=== PATIENT | female | born 1945 | race Caucasian/White ===

== ENCOUNTER 2019-12-10 14:44 | Outpatient (CLI) | payer MEDICARE, SELFPAY ==
--- NOTE | ~2019-12-10 | DEXA_ITS ---
Bone Density Report Name: Joanne Monroe Age: 74 Sex: Female Ethnicity: White Date of : 1945 Indication: postmenopausal; height loss; Referring Provider: Jacqueline Lee Study: Bone densitometry was performed. Exam Date: December 10, 2019 Accession number: [id number] Bone Density: Region BMD T-score Z-score Classification AP Spine (L1, L2) 0.991 0.1 2.4 Normal Femoral Neck (Left) 0.763 -0.8 1.3 Normal Total Hip (Left) 0.882 -0.5 1.3 Normal Total Hip Bilateral Avg 0.874 -0.6 1.3 Normal Femoral Neck (Right) 0.703 -1.3 0.8 Osteopenia Total Hip (Right) 0.864 -0.6 1.2 Normal World Health Organization criteria for BMD impression classify patients as: Normal (T-score at or above -1.0), Osteopenia (T-score between -1.0 and -2.5), or Osteoporosis (T-score at or below -2.5). 10-year Fracture Risk(1): Major Osteoporotic Fracture 10% Hip Fracture 1.8% Reported Risk Factors: [place] (), Neck BMD=0.703, BMI=32.4 (1) FRAX(R) Version 3.08. Fracture probability calculated for an untreated patient. Fracture probability may be lower if the patient has received treatment. Previous Exams: Region Exam Age BMD T-score BMD Change BMD Change Date g/cm2 vs Baseline vs Previous AP Spine(L1, L2) 12/10/2019 74 0.991 0.1 -0.057(-5.4%)# -0.075(-7.1%)* 05/13/2015 69 1.067 0.8 0.018(1.7%)# 0.052(5.1%)# 10/18/2012 67 1.015 0.3 -0.034(-3.2%)# -0.034(-3.2%)# 04/10/2009 63 1.049 0.6 Total Hip(Left) 12/10/2019 74 0.882 -0.5 -0.050(-5.3%)# -0.007(-0.8%) 05/13/2015 69 0.889 -0.4 -0.043(-4.6%)# -0.075(-7.8%)# 10/18/2012 67 0.964 0.2 0.032(3.5%)# 0.032(3.5%)# 04/10/2009 63 0.932 -0.1 Total Hip(Right) 12/10/2019 74 0.864 -0.6 0.007(0.8%)# 0.014(1.7%) 05/13/2015 69 0.850 -0.8 -0.007(-0.8%)# -0.026(-3.0%)# 10/18/2012 67 0.876 -0.5 0.019(2.2%)# 0.019(2.2%)# 04/10/2009 63 0.857 -0.7 *Denotes significance at 95% confidence level, LSC for AP Spine = 0.022 g/cm2, LSC for Total Hip = 0.027 g/cm2 Clinical Information Provided by Patient: Has used the following medications: Vitamin D Patient maximum height was 65 Menopause Age: 52 No regular weight bearing exercise Drinks caffeinated beverages Onset of menses at age 13 Number of children 2 Impression: The patient has low bone mass, based on the Right Femoral Neck T-score. The patient has an estimated ten-year risk
--- NOTE | ~2019-12-10 | MM_ITS ---
EXAMINATION: MM screening ethan BI w rigo HISTORY: Screening mammogram TECHNIQUE: Craniocaudal and mediolateral oblique 3-D tomosynthesis images were obtained and synthetic 2-D images were generated. CAD analysis was submitted and interpreted. COMPARISON: 10/11/2018 diagnostic bilateral digital mammogram and complete bilateral breast ultrasound 09/27/2018 bilateral digital screening mammogram 05/15/2017 bilateral diagnostic digital mammogram and complete left breast ultrasound BREAST PARENCHYMAL COMPOSITION: There are scattered areas of fibroglandular density. FINDINGS: There are scattered bilateral benign calcifications. There are scattered bilateral subcenti meter circumscribed opacities. There is no evidence of interval suspicious mass, calcification, or ar chitectural distortion to suggest malignancy in either breast. There has been no suspicious interval change. IMPRESSION: 1. No mammographic evidence of malignancy. 2. Recommend routine screening mammography in one year. BI-RADS Category 2: Benign finding(s). Reviewed, dictated and finalized at location A.
== END 2019-12-10 14:45 | disposition home or self-care (01) ==
PROVIDERS: PCP Family Medicine; Visit Provider Family Medicine
DX: Z12.31 Encounter for screening mammogram for malignant neoplasm of breast (principal); Z78.0 Asymptomatic menopausal state; M85.851 Other specified disorders of bone density and structure, right thigh
CPT/HCPCS: 77063; 77067; 77080

== ENCOUNTER → 2019-12-23 13:41 | Outpatient (CLI) | payer MEDICARE, SELFPAY ==
--- NOTE | ~2019-12-23 | CT_ITS ---
EXAMINATION: CT brain wo/w con DATE: 12/23/2019 14:38 INDICATION: Communicating hydrocephalus. TECHNIQUE: Computed tomography (CT) of the head was performed without and with 100 mL Omnipaque 350 i ntravenous contrast. The mA was adjusted according to patient size. Iterative reconstruction techniqu e was employed. The dose-length product was 1199.14 mGy-cm. COMPARISON: None FINDINGS: There are scattered areas of low attenuation in the cerebral white matter. There is no intr acranial hemorrhage, acute infarction, or abnormal intracranial mass lesion. The ventricles are marva l in size. There is a right temporal occipital approach ventriculostomy catheter that courses through the right lateral ventricle with tip in the right frontal lobe. The paranasal sinuses are clear. The re are likely changes of ocular lens replacement surgeries. There is a small right mastoid effusion, likely chronic. IMPRESSION: 1. Normal ventricles. Right temporal occipital ventriculostomy catheter that courses through right la teral ventricle with tip in right frontal lobe. 2. Mild nonspecific cerebral white matter disease, which likely represents chronic small vessel ische lidya disease. Reviewed, dictated and finalized at location A. IMPRESSION: 1. Normal ventricles. Right temporal occipital ventriculostomy catheter that co urses through right lateral ventricle with tip in right frontal lobe. 2. 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
[2019-12-23 14:24] LABS: Estimated Glomerular Filt Rate > 60
== END ==
PROVIDERS: PCP Family Medicine; Visit Provider Family Medicine
DX: G91.0 Communicating hydrocephalus (principal); R93.0 Abnormal findings on diagnostic imaging of skull and head, not elsewhere classified
CPT/HCPCS: 70470; Q9967

== ENCOUNTER 2020-09-24 15:33 | Emergency (ER) | payer MEDICARE, SELFPAY ==
--- NOTE | ~2020-09-24 | XR_ITS ---
XR chest 1V portable DATE: 09/24/2020 18:05 INDICATION: Cerebrovascular accident. Headache. TECHNIQUE: Portable upright AP view on 10/21/2020 at 1856 hours COMPARISON: None FINDINGS: Normal heart size. Mild aortic unfolding. No hilar or mediastinal enlargement. No pulmonary infiltrate or consolidation, pleural effusion or pulmonary vascular congestion or pneumothorax. IMPRESSION: No active cardiopulmonary disease Reviewed, dictated and finalized at location A.
--- NOTE | ~2020-09-24 | CT_ITS ---
EXAMINATION: CTA brain carotid EXAM DATE: 09/24/2020 19:00 INDICATION: Stroke. Headache. Communicating hydrocephalus. TECHNIQUE: Noncontrast head CT. Spiral CTA of the carotid arteries was performed with intravenous i njection 100 cc of Omnipaque 350. Axial, coronal, sagittal reformatted images reviewed. Additional r eformatted images created on dedicated 3-D workstation. NASCET comparable standard used to assess th e degree of arterial stenosis. Spiral CT angiogram cerebral arteries performed with the same intrave nous injection of contrast. Source images of the brain CTA transferred to dedicated workstation for 3 -D rotational image creation. Coronal, sagittal maximum intensity pixel images also reviewed. The d ose-length product (DLP) for this examination was 1836.79 mGy-cm. The exposure was tailored accordi ng to patient size, and iterative reconstruction (ASIR) was used as additional dose reduction techniq ue. Comparison is made to prior examination from 12/23/2019. FINDINGS: There is no carotid plaque, 0% carotid stenosis bilaterally. The vertebral arteries are cod ominant. Mild carotid siphon arterial sclerosis without stenosis. There is no carotid or vertebral b asilar arterial dissection or fibromuscular dysplasia. There are no cerebral artery aneurysms. There is symmetric cerebral artery arborization. The sagittal, transverse and sigmoid sinuses enhance marva lly, no venous sinus thrombosis. Internal cerebral veins also enhance normally. Again there is right-sided ventricular shunt entering the parietal bone, coursing along the body of t he right lateral ventricle, with tip in the frontal lobe white matter. Ventricle size is stable, with in expected limits.There is no acute intraparenchymal hemorrhage. There is mild microangiopathy and c erebral atrophy. No evidence of intraparenchymal brain mass lesion. No evidence of acute infarction. Bilateral cataract surgery. There is no mass effect or midline shift. There are no extra-axial jaswant ections. Trace right mastoid effusion. IMPRESSION: 1. No acute carotid or intracranial findings. 2. Bilateral carotid bulb 0% stenosis. Reviewed, dictated and finalized at location B.
[2020-09-24 15:34] VITALS: BP 151/79; PULSE 95; RESP 16; TEMP 37; O2SAT 100
--- NOTE | 2020-09-24 17:04 | ECG_ITS ---
Measurements Intervals [place] Rate: 84 P: 5 [place]: 181 QRS: -32 QRSD: 74 T: -13 QT: 332 QTc: 395 Interpretive Statements SINUS RHYTHM POOR R WAVE PROGRESSION, ANTERIOR LEADS CONSIDER INFERIOR INFARCT, AGE INDETERMINATE BASELINE ARTIFACT- I, II, III, AVR, AVF, V1, V3-V6 ABNORMAL ECG Electronically Signed On 09-24-2020 21:25:47 CDT by Umesh Galarza D.O.
[2020-09-24 17:34] VITALS: BP 142/76; PULSE 85; RESP 22; O2SAT 98
--- NOTE | 2020-09-24 17:39 | ED.GENADULT ---
HPI - General Adult General Chief complaint: Headache Stated complaint: UNSTEADY GAIT,ROOT RESOLVED Time Seen by Provider: 09/24/20 16:13 Source: patient and RN notes reviewed Mode of arrival: ambulatory Limitations: no limitations History of Present Illness HPI narrative: Patient is a 75-year-old female who presents to emergency department for evaluation of having an episode of confusion when she called primary care son called and requested that she come to the ER she lives at independent living she had been complaining of a posterior headache today. Patient did not take anything for her headache and presents to emergency department noting no pain. Patient denies injury or trauma recent illness. Patient notes she did not take her metoprolol yesterday. Patient takes very few medications has history of NEWS LIBRARY DIRECTOR shunt with no complications and has had this shunt long-term on arrival patient resting comfortably in the room with no other complaints Related Data Home Medications Medication Instructions Recorded Confirmed lactobacillus rhamnosus R0011 20 cell PO 04/22/19 08/07/20 billion cell capsule omeprazole 20 mg tablet,delayed 20 mg PO DAILY 04/22/19 08/07/20 release peg 400-propylene glycol (PF) 0.4 1 drop EACH EYE DAILY PRN 04/22/19 08/07/20 %-0.3 % eye drops in a dropperette cholecalciferol (vitamin D3) 25 25 mcg PO DAILY 02/10/20 08/07/20 mcg (1,000 unit) capsule mecobalamin (vitamin B12) 1,000 1,000 mcg PO DAILY 02/10/20 08/07/20 mcg chewable tablet Allergies Allergy/AdvReac Type Severity Reaction Status Date / Time fesoterodine [From Toviaz] Allergy Mild loopy and Verified 09/24/20 15:39 unsteady ciprofloxacin Allergy Unknown Unknown Verified 09/24/20 15:39 house dust Allergy Unknown seansonal Verified 09/24/20 15:39 meloxicam Allergy Unknown Unknown Verified 09/24/20 15:39 mold Allergy Unknown seasonal Verified 09/24/20 15:39 Penicillins Allergy Unknown Rash Verified 09/24/20 15:39 donepezil [From Namzaric] Allergy confusion Verified 09/24/20 15:39 memantine [From Namzaric] Allergy confusion Verified 09/24/20 15:39 Review of Systems Review of Systems: All systems reviewed & are unremarkable except as noted in HPI and below PMFSH Past Medical History Medical History Arthritis of knee Hyperlipidemia type III Hypothyroidism, acquired, autoimmune SUNDEEP (obstructive sleep apnea) Primary osteoarthritis of right knee Vitamin D deficiency, unspecified Surgical History Surgical History NEWS LIBRARY DIRECTOR (ventriculoperitoneal) shunt status Family History Family History Father Patient's father is Malignant neoplasm of prostate Sibling Patient's sister is Grandparent Family history of arthritis Other Cerebrovascular accident Diabetes mellitus Family history of malignant neoplasm Family history of malignant neoplasm of breast Hypertension Social History Social History Social History: Smoking status: Never smoker Second hand tobacco smoke exposure: No Alcohol intake: current Substance use: never Substance use type: does not use Gender identity (if verbalized by the patient): Female Exam Narrative: Exam Narrative: GENERAL: Well-appearing, well-nourished, and in no acute distress. HEAD: Normocephalic, atraumatic. EYES: PERRLA and EOMI. ENT: Nares clear, no rhinorrhea or epistaxis. Mucous membranes moist. NECK: Supple. No adenopathy or masses. CHEST: Clear to auscultation. No respiratory distress. No wheezes rales or rhonchi HEART: Regular rate and rhythm. No murmur heard. Normal peripheral pulses. ABDOMEN: Soft, nontender, nondistended EXTREMITIES: Normal range of motion. No edema. SKIN: Warm, dry, no rash. NEURO: No focal
[2020-09-24 17:46] LABS: Glucose Point of Care 107 mg/dl (65-105)
[2020-09-24 17:51] LABS: Basophils Percent Auto 0.4 % (0.2-1.2); Eosinophils Percent Auto 0.5 % (0-4.4); Hematocrit 41.2 % (37.0-47.0); Hemoglobin 13.1 g/dL (12.0-15.0); Immature Granulocyte Absolute 0.02 K/mm3 (0.00-0.031); Immature Granulocyte Percent A 0.3 % (0-0.5); Lymphocytes Absolute Auto 1.35 K/mm3 (0.9-3.2); Lymphocytes Percent Auto 17.7 % (18.3-44.2); Mean Corpuscular HGB Conc 31.8 g/dl (32-36); Mean Corpuscular Hemoglobin 28.9 pg (26-34); Mean Corpuscular Volume 90.9 fl (80-100); Mean Platelet Volume 10.8 fl (7.4-10.4); Monocytes Absolute Auto 0.5 K/mm3 (0.1-0.6); Neutrophils Absolute Auto 5.7 K/mm3 (1.3-6.7); Neutrophils Percent Auto 75.1 % (45.5-73.1); Platelet Count Result 231 k/mm3 (150-375); Red Blood Count 4.53 M/mm3 (4.2-5.4); Red Cell Distribution Width 13.4 % (11.5-14.5); White Blood Count 7.6 K/mm3 (4.5-10.0)
--- NOTE | 2020-09-24 17:52 | PC.NURSE ---
Patient ambulatory from room 17 to room 22 without difficulty and in no distress.
[2020-09-24 17:53] LABS: Add Urine Microscopic? NO; Appearance Urine Clear (Clear); Bilirubin Urine Negative (Negative); Blood Urine Negative (Negative); Color Urine Straw (Yellow); Glucose Urine UA Negative (Negative); Ketones Urine Negative (Negative); Leukocyte Esterase Ur Negative LEU/UL (Negative); Nitrate Urine Negative (Negative); Protein Urine Negative (Negative); Specific Grav Ur 1.013 (1.001-1.035); Urobilinogen Urine Negative mg/dL (<2.0)
[2020-09-24 18:00] LABS: Anion Gap 11 mmol/L (8-16); Blood Urea Nitrogen 21 mg/dL (7-17); Calcium 9.8 mg/dL (8.4-10.2); Carbon Dioxide 24 mmol/L (22-30); Chloride 107 mmol/L (98-107); Estimated CRCL calculation 52 ml/min; Estimated Glomerular Filt Rate > 60; Glucose 104 mg/dL (65-105); Potassium 4.4 mmol/L (3.4-5.0); Sodium 142 mmol/L (137-145)
[2020-09-24 18:02] LABS: Partial Thromboplastin Time 34.4 SECONDS (22.3-36.8)
[2020-09-24 18:07] LABS: Prothrombin Time 13.8 Seconds (11.1-14.7)
== END 2020-09-24 21:25 | disposition home or self-care (01) ==
PROVIDERS: Emergency Medicine Emergency Medical Services; Emergency Provider Emergency Medicine; PCP Family Medicine
DX: R51.9 Headache, unspecified (principal); E78.5 Hyperlipidemia, unspecified; E06.3 Autoimmune thyroiditis; G47.33 Obstructive sleep apnea (adult) (pediatric); E55.9 Vitamin D deficiency, unspecified; M17.11 Unilateral primary osteoarthritis, right knee; Z98.2 Presence of cerebrospinal fluid drainage device; R94.31 Abnormal electrocardiogram [ECG] [EKG]
CPT/HCPCS: 36415; 70496; 70498; 71045; 80048; 81003; 81025; 82948; 85025; 85610; 85730; 93005; 99284; Q9967

== ENCOUNTER 2021-05-20 10:54 | Outpatient (CLI) | payer MEDICARE, SELFPAY ==
[2021-05-20 11:44] LABS: Basophils Absolute Auto 0.1 K/mm3 (0.0-0.1); Basophils Percent Auto 0.6 % (0.2-1.2); Eosinophils Absolute Auto 0.1 K/mm3 (0-0.3); Eosinophils Percent Auto 0.7 % (0-4.4); Hematocrit 40.5 % (37.0-47.0); Immature Granulocyte Absolute 0.03 K/mm3 (0.00-0.031); Immature Granulocyte Percent A 0.3 % (0-0.5); Lymphocytes Absolute Auto 1.96 K/mm3 (0.9-3.2); Lymphocytes Percent Auto 22.8 % (18.3-44.2); Mean Corpuscular HGB Conc 32.1 g/dl (32-36); Mean Corpuscular Volume 93.3 fl (80-100); Mean Platelet Volume 11.5 fl (7.4-10.4); Monocytes Absolute Auto 0.6 K/mm3 (0.1-0.6); Monocytes Percent Auto 7.2 % (2.6-8.5); Neutrophils Absolute Auto 5.9 K/mm3 (1.3-6.7); Neutrophils Percent Auto 68.4 % (45.5-73.1); Platelet Count Result 247 k/mm3 (150-375); Red Blood Count 4.34 M/mm3 (4.2-5.4); Red Cell Distribution Width 13.8 % (11.5-14.5); White Blood Count 8.6 K/mm3 (4.5-10.0)
[2021-05-20 11:52] LABS: Add Urine Microscopic? YES; Appearance Urine Cloudy (Clear); Bacteria Urine Trace /hpf; Bilirubin Urine Negative (Negative); Color Urine Yellow (Yellow); Glucose Urine UA Negative (Negative); Ketones Urine Negative (Negative); Leukocyte Esterase Ur 3+ LEU/UL (Negative); Mucus Urine Rare /lpf; Nitrate Urine Negative (Negative); Protein Urine Negative (Negative); Specific Grav Ur 1.019 (1.001-1.035); Squamous Epithelial Cell Urine Many /hpf (Few); Urobilinogen Urine Negative mg/dL (<2.0); WBC Urine >75 /hpf
[2021-05-20 11:55] LABS: Alanine Aminotransferase 15 U/L (4-35); Albumin Level 4.4 g/dL (3.5-5.1); Alkaline Phosphatase 109 U/L (38-126); Anion Gap 10 mmol/L (8-16); Aspartate Amino Transferase 20 U/L (14-36); Bilirubin,Total 0.7 mg/dL (0.2-1.3); Blood Urea Nitrogen 17 mg/dL (7-17); Calcium 9.6 mg/dL (8.4-10.2); Carbon Dioxide 26 mmol/L (22-30); Chloride 104 mmol/L (98-107); Estimated Glomerular Filt Rate > 60; Glucose 94 mg/dL (65-110); Potassium 4.5 mmol/L (3.4-5.0); Sodium 140 mmol/L (137-145)
[2021-05-20 12:03] LABS: Blood Urine Negative (Negative)
[2021-05-20 12:27] LABS: Total Triiodothyronine (T3) 1.09 NG/ML (0.97-1.69)
[2021-05-20 13:15] LABS: Free T4 Free Thyroxine 1.06 ng/mL (0.78-2.19)
== END 2021-05-20 10:55 | disposition home or self-care (01) ==
LOC: ANHLAB 10:56
PROVIDERS: PCP Family Medicine; Visit Provider Family Medicine
DX: R41.0 Disorientation, unspecified (principal); I10 Essential (primary) hypertension; E03.9 Hypothyroidism, unspecified
CPT/HCPCS: 36415; 80053; 81001; 84439; 84443; 84480; 85025; 87077; 87086; 87186

== ENCOUNTER 2021-09-24 07:47 | Emergency (ER) | payer MEDICARE, SELFPAY ==
[2021-09-24] VITALS (9 sets, daily range): BP systolic 126–133; BP diastolic 61–66; PULSE 76–87; RESP 15–20; TEMP 36.2; O2SAT 97–100
--- NOTE | ~2021-09-24 | CT_ITS ---
EXAMINATION: CT brain wo con, CT facial bones wo con DATE: 09/24/2021 08:13 INDICATION: Head and facial injury post fall with laceration on the chin, pinpoint pupils and unable to communicate. TECHNIQUE: 1. Computed tomography (CT) of the head was performed without intravenous contrast. Sagittal and kisha nal reconstructions were obtained. The dose-length product was 605.33 mGy-cm. 2. CT of the facial bones and maxillofacial region was performed without intravenous contrast. Sagitt al and coronal reconstructions were obtained. The dose-length product was 265.00 mGy-cm. COMPARISON: 12/23/2019 FINDINGS: Head CT: Unchanged ventriculoperitoneal shunt with which enters through a right parietal jt hole and extends from the occipital horn to the anterior horn of the right lateral ventricle with distal tip in the p eriventricular right frontal lobe. No calvarial fracture. No acute intracranial hemorrhage, acute inf arction or abnormal extra axial fluid collection. There is mild scattered white matter hypoattenuatio n consistent with chronic small vessel ischemic disease. Ventricles are normal and symmetric. No mas s/mass effect. Maxillofacial CT: Age-indeterminate small minimally displaced fracture at the tip of the nasal process of the maxilla. No other maxillofacial fractures. Specifically the nasal bones, child of the orbits and paranasal sin uses, zygomatic arches, pterygoid plates and mandible are all intact. There is a skin laceration at t he lower lip with soft tissue swelling and small amount of soft tissue gas. Nasal septum is midline. Mild mucosal thickening the right maxillary sinus. Chronic small right mastoid effusion. Left mastoid air cells and bilateral middle ear cavities are clear. Changes of bilateral intraocular lens replace ment. Orbits are otherwise normal. Temporomandibular joints are normal alignment with mild osteoarthr itis on the left. Moderate upper cervical spondylosis. IMPRESSION: 1. Minimally displaced age-indeterminate fracture at the tip of the nasal process of the maxilla. No other fractures identified. 2. No calvarial fracture or acute intracranial process. 3. Unchanged ventriculoperitoneal shunt which courses from posterior to anterior across the right lat eral ventricle with tip in the anterior right frontal periventricular white matter. Ventricles are un changed. 4. Mild scattered white matter hypoattenuation consistent with chronic small vessel ischemic disease. Reviewed, dictated and finalized at location B. IMPRESSION: 1. Minimally displaced age-indeterminate fracture at the tip of the nasal proce ss of the maxilla. No other fractures identified. 2. No calvarial fracture or acute intracranial process. 3. Unchanged ventriculoperitoneal shunt which courses from posterior to anterio r across the right lateral ventricle with tip in the anterior right frontal per iventricular white matter. Ventricles are unchanged. 4. Mild scattered white matter hypoattenuation consistent with chronic small ve ssel ischemic disease.
--- NOTE | ~2021-09-24 | XR_ITS ---
EXAMINATION: XR hand RT min 3V DATE: 09/24/2021 08:18 INDICATION: Right hand and index finger injury TECHNIQUE: Posteroanterior, oblique and lateral views of the right hand were obtained. COMPARISON: None. FINDINGS: Soft tissue swelling at the right index finger with surrounding bandaging material. Suggestion of a p ossible skin laceration at the distal phalanx. Bone alignment is normal. No fracture. Polyarticular o steoarthritis, moderate at the first carpometacarpal joint and mild at the majority the remaining carlos nts in the right hand. No radiopaque foreign bodies. IMPRESSION: 1. No acute osseous abnormality. Reviewed, dictated and finalized at location B.
--- NOTE | 2021-09-24 07:58 | ECG_ITS ---
Measurements Intervals [place] Rate: 80 P: 9 [place]: 168 QRS: -21 QRSD: 94 T: 27 QT: 366 QTc: 422 Interpretive Statements SINUS RHYTHM CANNOT RULE OUT INFERIOR INFARCTION AGE INDETERMINATE BASELINE ARTIFACT ABNORMAL ECG COMPARED TO ECG 09/24/2020 17:33:36 NO SIGNIFICANT CHANGES Electronically Signed On 09-24-2021 16:57:33 CDT by Diomedes Spring M.D.
--- NOTE | 2021-09-24 07:58 | ED.FALL ---
HPI - Fall General Chief Complaint: Fall Stated Complaint: POSSIBLE STROKE (LKW-12 HOURS AGO) GLF WITH LACS History of Present Illness HPI Narrative: 76-year-old female presenting to the emergency department for evaluation after having a ground-level fall this morning at her assisted living. Patient states she was attempting to walk towards the bathroom when she had a ground-level fall causing her to strike her face. Patient is unsure if she had any loss of consciousness. Patient's only complaint at this time is facial and right hand pain. Related Data Home Medications Medication Instructions Recorded Confirmed omeprazole 20 mg tablet,delayed 20 mg PO DAILY 04/22/19 08/04/21 release peg 400-propylene glycol (PF) 0.4 1 drop ophthalmic (eye) DAILY PRN 04/22/19 08/04/21 %-0.3 % eye drops in a dropperette (Systane (PF)) cholecalciferol (vitamin D3) 25 25 mcg PO DAILY 02/10/20 08/04/21 mcg (1,000 unit) capsule Allergies Allergy/AdvReac Type Severity Reaction Status Date / Time fesoterodine [From Toviaz] Allergy Mild loopy and Verified 09/24/21 08:19 unsteady ciprofloxacin Allergy Unknown Unknown Verified 09/24/21 08:19 house dust Allergy Unknown seansonal Verified 09/24/21 08:19 meloxicam Allergy Unknown Unknown Verified 09/24/21 08:19 mold Allergy Unknown seasonal Verified 09/24/21 08:19 Penicillins Allergy Unknown Rash Verified 09/24/21 08:19 donepezil [From Namzaric] Allergy confusion Verified 09/24/21 08:19 memantine [From Namzaric] Allergy confusion Verified 09/24/21 08:19 Review of Systems Review of Systems: CONSTITUTIONAL: Denies fever, chills, or sweats. EYES: Denies visual changes, redness, or discharge. ENT: Denies rhinorrhea, congestion, sore throat, or otalgia. CARDIOVASCULAR: Denies chest pain, palpitations, or edema. RESPIRATORY: Denies cough or dyspnea. GASTROINTESTINAL: Denies abdominal pain, nausea, vomiting, or diarrhea. GENITOURINARY: Denies dysuria or hematuria. SKIN: Laceration to chin, laceration to right index finger MUSCULOSKELETAL: Denies back pain, joint pain, or myalgia. NEUROLOGIC: Denies headache, numbness, or weakness. [facility] Past Medical History Medical History Arthritis of knee Hyperlipidemia type III Hypothyroidism, acquired, autoimmune SUNDEEP (obstructive sleep apnea) Primary osteoarthritis of right knee Vitamin D deficiency, unspecified Surgical History Surgical History DIRECTOR CLINICAL RESEARCH (ventriculoperitoneal) shunt status Family History Family History Father Patient's father is Malignant neoplasm of prostate Sibling Patient's sister is Grandparent Family history of arthritis Other Cerebrovascular accident Diabetes mellitus Family history of malignant neoplasm Family history of malignant neoplasm of breast Hypertension Social History Social History (Updated 07/30/21 @ 11:16 by Lucero Juarez) Social History: Smoking status: Never smoker Second hand tobacco smoke exposure: No Alcohol intake: current Alcohol use details: Occasionally Substance use: never Substance use type: does not use Gender identity (if verbalized by the patient): Female Sexual Orientation (if Verbalized by the Patient): Straight or Heterosexual Exam Narrative: APPEARANCE: Well appearing, no pain, no distress, well-nourished. HEAD: normocephalic, laceration to inferior chin EYES: PERRLA/EOMI, conjunctivae clear. NOSE: Normal no drainage NECK: Supple. No adenopathy, no masses. RESPIRATORY: Airway patent, respirations nonlabored. Clear to auscultation bilaterally, no rales, rhonchi, wheezing. CARDIOVASCULAR: Regular rate and rhythm without murmurs rubs or gallops. ABDOMINAL: Soft, nontender, nondistended, normal bowel sounds MUSCULOSKELETAL: Moves all extremities. Strength/ROM inta
[2021-09-24 07:59] LABS: Glucose Point of Care 115 mg/dl (65-105)
[2021-09-24 08:10] LABS: Basophils Percent Auto 0.6 % (0.2-1.2); Eosinophils Percent Auto 0.6 % (0-4.4); Hematocrit 40.1 % (37.0-47.0); Immature Granulocyte Absolute 0.01 K/mm3 (0.00-0.031); Immature Granulocyte Percent A 0.1 % (0-0.5); Lymphocytes Absolute Auto 1.35 K/mm3 (0.9-3.2); Lymphocytes Percent Auto 20.1 % (18.3-44.2); Mean Corpuscular HGB Conc 32.4 g/dl (32-36); Mean Corpuscular Hemoglobin 29.5 pg (26-34); Mean Corpuscular Volume 91.1 fl (80-100); Mean Platelet Volume 10.5 fl (7.4-10.4); Monocytes Absolute Auto 0.5 K/mm3 (0.1-0.6); Monocytes Percent Auto 6.9 % (2.6-8.5); Neutrophils Absolute Auto 4.8 K/mm3 (1.3-6.7); Neutrophils Percent Auto 71.7 % (45.5-73.1); Platelet Count Result 228 k/mm3 (150-375); Red Cell Distribution Width 13.2 % (11.5-14.5); White Blood Count 6.7 K/mm3 (4.5-10.0)
[2021-09-24 08:23] LABS: Alanine Aminotransferase 15 U/L (6-35); Albumin Level 3.7 g/dL (3.5-5.1); Alkaline Phosphatase 105 U/L (38-126); Anion Gap 3 mmol/L (8-16); Aspartate Amino Transferase 22 U/L (14-36); Bilirubin,Total 0.8 mg/dL (0.2-1.3); Blood Urea Nitrogen 21 mg/dL (7-17); Calcium 8.9 mg/dL (8.4-10.2); Carbon Dioxide 29 mmol/L (22-30); Chloride 107 mmol/L (98-107); Estimated CRCL calculation 47 ml/min; Estimated Glomerular Filt Rate > 60; Glucose 112 mg/dL (65-110); Sodium 139 mmol/L (137-145)
[2021-09-24 08:23] LABS: INR 1.1; Partial Thromboplastin Time 33.6 SECONDS (22.3-36.8); Prothrombin Time 13.8 Seconds (11.1-14.7)
[2021-09-24 08:59] LABS: Appearance Urine Clear (Clear); Bilirubin Urine Negative (Negative); Blood Urine Negative (Negative); Color Urine Yellow (Yellow); Glucose Urine UA Negative (Negative); Ketones Urine Negative (Negative); Leukocyte Esterase Ur Negative LEU/UL (Negative); Nitrate Urine Negative (Negative); Protein Urine Negative (Negative); Urobilinogen Urine 0.2 mg/dL (<2.0); pH Urine 6.5 (5.0-9.0)
[2021-09-24 09:06] LABS: Add Urine Microscopic? NO
--- NOTE | 2021-09-24 10:40 | PC.NURSE ---
PT INCONTINENT OF BOWEL AND BLADDER. CLEANED UP BY NINI ARCEO. DR GORDON MADE AWARE
[2021-09-24] MEDS: TETANUS,DIPHTHERIA,AC PERTUSSIS ADULT (0.5 ML) BOOSTRIX IM (12:01)
--- NOTE | 2021-09-24 12:06 | PC.NURSE ---
Desktop Technician attempted to contact both contacts for to obtain patient transport back to her facility.
== END 2021-09-24 12:18 | disposition home or self-care (01) ==
PROVIDERS: Emergency Provider Emergency Medicine; PCP Family Medicine
DX: S02.2XXA Fracture of nasal bones, initial encounter for closed fracture (principal); S61.210A Laceration without foreign body of right index finger without damage to nail, initial encounter; S01.81XA Laceration without foreign body of other part of head, initial encounter; E78.5 Hyperlipidemia, unspecified; E03.9 Hypothyroidism, unspecified; Z79.899 Other long term (current) drug therapy; Z23 Encounter for immunization; W18.30XA Fall on same level, unspecified, initial encounter; Y92.099 Unspecified place in other non-institutional residence as the place of occurrence of the external cause
CPT/HCPCS: 12001; 12011; 12013; 36415; 51701; 70450; 70486; 73130; 80053; 81003; 82948; 85025; 85610; 85730; 90471; 90715; 93005; 99284

== ENCOUNTER 2021-11-23 07:51 | Emergency (ER) | payer MEDICARE, SELFPAY ==
[2021-11-23 07:50] VITALS: BP 130/59; PULSE 70; RESP 16; TEMP 36.6; O2SAT 94
--- NOTE | 2021-11-23 08:08 | ED.FALL ---
HPI - Fall General Chief Complaint: Fall Stated Complaint: FALL Time Seen by Provider: 11/23/21 07:57 Source: patient, family and RN notes reviewed Mode of arrival: EMS Limitations: no limitations History of Present Illness HPI Narrative: 76 years old white female, came from custodial by ambulance because of skin tear at the right forearm. Patient was sitting on the toilet, slid off it and injured right forearm. She denies any other injuries. Last tetanus shot at the beginning of this month. Patient's son requested to check urine because had urine infection 1 week ago. Related Data Home Medications Medication Instructions Recorded Confirmed omeprazole 20 mg tablet,delayed 20 mg PO DAILY 04/22/19 10/17/21 release peg 400-propylene glycol (PF) 0.4 1 drop ophthalmic (eye) DAILY PRN 04/22/19 10/17/21 %-0.3 % eye drops in a dropperette (Systane (PF)) cholecalciferol (vitamin D3) 25 25 mcg PO DAILY 02/10/20 10/17/21 mcg (1,000 unit) capsule Allergies Allergy/AdvReac Type Severity Reaction Status Date / Time fesoterodine [From Toviaz] Allergy Mild loopy and Verified 10/01/21 11:11 unsteady ciprofloxacin Allergy Unknown Unknown Verified 10/01/21 11:11 house dust Allergy Unknown seansonal Verified 10/01/21 11:11 meloxicam Allergy Unknown Unknown Verified 10/01/21 11:11 mold Allergy Unknown seasonal Verified 10/01/21 11:11 Penicillins Allergy Unknown Rash Verified 10/01/21 11:11 donepezil [From Namzaric] Allergy confusion Verified 10/01/21 11:11 memantine [From Namzaric] Allergy confusion Verified 10/01/21 11:11 Review of Systems Review of Systems: All systems reviewed & are unremarkable except as noted in HPI and below PMFSH Past Medical History Medical History Arthritis of knee Hyperlipidemia type III Hypothyroidism, acquired, autoimmune SUNDEEP (obstructive sleep apnea) Primary osteoarthritis of right knee Vitamin D deficiency, unspecified Surgical History Surgical History HOSPITAL[employer]ITLES (ventriculoperitoneal) shunt status Family History Family History Father Patient's father is Malignant neoplasm of prostate Sibling Patient's sister is Grandparent Family history of arthritis Other Cerebrovascular accident Diabetes mellitus Family history of malignant neoplasm Family history of malignant neoplasm of breast Hypertension Social History Social History Social History: Smoking status: Never smoker Second hand tobacco smoke exposure: No Alcohol intake: current Alcohol use details: Occasionally Substance use: never Substance use type: does not use Gender identity (if verbalized by the patient): Female Sexual Orientation (if Verbalized by the Patient): Straight or Heterosexual Exam Narrative: General appearance: Well-developed, well-nourished Skin: Right forearm skin tear Head: Normocephalic, nontraumatic Eyes: Clear conjunctiva Neck: Supple, nontender Chest and respiratory: Airway patent, no respiratory distress, no accessory muscle use Heart: Regular rate/rhythm Abdomen: Soft, nontender, no organomegaly, quiet bowel sounds Vascular: Normal peripheral pulses, normal capillary refill. Musculoskeletal: Normal range of motion, nontender back Neurologic: Alert and oriented ?3, COTTON SAMPLER is normal as tested, no gross motor deficit Course Vital Signs Vital signs: Vital Signs Temperature 36.6 C 11/23/21 07:50 Pulse Rate 70 11/23/21 07:50 Respirator
[2021-11-23 08:42] LABS: Appearance Urine Clear (Clear); Bilirubin Urine Negative (Negative); Blood Urine Negative (Negative); Color Urine Yellow (Yellow); Glucose Urine UA Negative (Negative); Ketones Urine Negative (Negative); Leukocyte Esterase Ur 2+ LEU/UL (Negative); Nitrate Urine Negative (Negative); Protein Urine Negative (Negative); Specific Grav Ur 1.015 (1.001-1.035); Urobilinogen Urine 0.2 mg/dL (<2.0)
[2021-11-23 08:49] LABS: Mucus Urine Rare /lpf; Squamous Epithelial Cell Urine Many /hpf (Few); WBC Urine 16-20 /hpf
[2021-11-23 08:50] LABS: Add Urine Microscopic? YES
== END 2021-11-23 09:04 ==
PROVIDERS: Emergency Provider Emergency Medicine
DX: S51.811A Laceration without foreign body of right forearm, initial encounter (principal); E78.49 Other hyperlipidemia; E06.3 Autoimmune thyroiditis; E55.9 Vitamin D deficiency, unspecified; G47.33 Obstructive sleep apnea (adult) (pediatric); M17.11 Unilateral primary osteoarthritis, right knee; Z98.2 Presence of cerebrospinal fluid drainage device; W18.11XA Fall from or off toilet without subsequent striking against object, initial encounter; R82.998 Other abnormal findings in urine
CPT/HCPCS: 81001; 87086; 87088; 99283

== ENCOUNTER 2022-10-15 17:14 | Emergency (ER) | payer MEDICARE, SELFPAY ==
[2022-10-15] VITALS (17 sets, daily range): BP systolic 117–149; BP diastolic 57–79; PULSE 87; RESP 18; TEMP 36.9; O2SAT 96–100
--- NOTE | ~2022-10-15 | CT_ITS ---
Non-contrast Head CT History: Status post fall COMPARISON: 09/24/2021 Technique: Axial non-contrast imaging of the brain was performed. Dose reduction technique was used on this scan by utilizing automated exposure control and iterative reconstruction technique. The dose -length product (DLP) was 605.33 mGy-cm. Findings: There is no evidence of intracranial hemorrhage, mass lesion, or acute infarct. Brain par enchyma appears normal. The ventricles and subarachnoid spaces are stable, with ventriculostomy shun t catheter in place. The calvarium appears normal. The visualized paranasal sinuses and mastoid air cells are clear. Impression: No acute abnormality seen. Stable ventriculostomy shunt catheter with stable mild prominence of the ventricular system. Reviewed, dictated and finalized at [facility]. Impression: No acute abnormality seen. Stable ventriculostomy shunt catheter with stable mild prominence of the ventri cular system.
--- NOTE | ~2022-10-15 | XR_ITS ---
Right elbow Technique: AP, oblique, and lateral views were obtained. Clinical History: Pain Findings: No acute fracture or dislocation is seen. Osseous alignment is anatomic. Joint spaces are p reserved. There is no displacement of the fat pads, and soft tissues are unremarkable. Impression: Unremarkable radiographs. Reviewed, dictated and finalized at location . Impression: Unremarkable radiographs.
--- NOTE | ~2022-10-15 | XR_ITS ---
Left Hand Technique: PA, oblique, and lateral views were obtained. Clinical History: Status post fall Findings: No acute fracture or dislocation is seen. Osseous alignment is anatomic. There is mild dege nerative change of the first CMC joint. Soft tissues are unremarkable. Impression: No fracture or dislocation. Mild degenerative change at the first CMC joint. Reviewed, dictated and finalized at location . Impression: No fracture or dislocation. Mild degenerative change at the first CMC joint.
--- NOTE | ~2022-10-15 | CT_ITS ---
CT Facial Bones and Cervical Spine Clinical Indication: Trauma Technique: Contiguous axial scans were obtained through the facial bones and cervical spine followed by coronal and sagittal reconstructions. Dose reduction technique was used on this scan by utilizing automated exposure control and iterative reconstruction technique. The dose-length product (DLP) was 325.44 mGy-cm. Findings: CT facial bones: No fractures are identified. The visualized paranasal sinuses are clear. Intraorbita l soft tissues appear normal. There is probable laceration in the left supraorbital scalp. CT cervical spine: No fractures or subluxation. There is advanced degenerative disc narrowing at C6- C7, with associated uncovertebral degenerative change at this level. There is right facet arthropathy with right neural foraminal narrowing at C3-C4. There is prominent left facet arthropathy at C4-C5 w ith probable mild neural foraminal narrowing. No prevertebral soft tissue swelling. Impression: No fracture is seen in the facial bones. Laceration in the left supraorbital scalp. No fracture or subluxation of the cervical spine. Degenerative changes, as above. Reviewed, dictated and finalized at location . Impression: No fracture is seen in the facial bones. Laceration in the left supraorbital scalp. No fracture or subluxation of the cervical spine. Degenerative changes, as above.
--- NOTE | ~2022-10-15 | XR_ITS ---
Portable chest x-ray Comparison: 09/24/2020 Clinical History: Status post fall Findings: Lungs are clear, without focal consolidation or pleural effusion. Cardiomediastinal silho uette is stable. Bones and soft tissues are unremarkable. Impression: Normal chest. Reviewed, dictated and finalized at location . Impression: Normal chest.
--- NOTE | ~2022-10-15 | XR_ITS ---
AP view of the pelvis Clinical history: Pain Findings: No acute fracture or dislocation is seen. Osseous alignment is anatomic. Bilateral hip and SI joint spaces are preserved. Soft tissues are unremarkable. Impression: No significant abnormality is seen. Reviewed, dictated and finalized at location . Impression: No significant abnormality is seen.
--- NOTE | 2022-10-15 17:27 | ECG_ITS ---
Measurements Intervals [place] Rate: 77 P: 24 [place]: 181 QRS: -27 QRSD: 74 T: 6 QT: 359 QTc: 406 Interpretive Statements BASELINE ARTIFACT/POOR ECG QUALITY SINUS RHYTHM BORDERLINE LEFT AXIS DEVIATION [QRS AXIS < -20] BORDERLINE ECG COMPARED TO ECG 09/24/2021 07:57:35 CURRENT tRACING HAS SIGNIFICANT BASELINE ARTIFACT Electronically Signed On 10-16-2022 8:27:53 CDT by Bora Prakash M.D.
--- NOTE | 2022-10-15 17:34 | ED.GENADULT ---
HPI - General Adult General Chief complaint: Fall Stated complaint: fall/syncopy Time Seen by Provider: 10/15/22 17:19 History of Present Illness HPI narrative: This is a 77-year-old dementia patient presenting after an unwitnessed fall. The patient does not recall the events leading up to the fall. She was found on the floor for an unknown period of time. EMS was called and she was brought to hospital. This time she has complained of pain to her left eyebrow left hand right elbow. She appears to be at her baseline mental status per her son which is A&O times 1-2. She has fluctuating mental status at baseline. Related Data Home Medications Medication Instructions Recorded Confirmed azelastine 137 mcg (0.1 %) nasal 1 spray intranasal Q12H 04/01/22 04/01/22 spray aerosol fluticasone propionate 50 1 spray intranasal BID 04/01/22 04/01/22 mcg/actuation nasal spray,suspension (Allergy Relief (fluticasone)) levothyroxine 25 mcg capsule 25 mcg PO DAILY 04/01/22 04/01/22 multivit with 1 tablet PO DAILY 04/01/22 04/01/22 [id number]-[id number]-lutein 8 mg iron-400 mcg-300 mcg tablet ([facility]) acetaminophen 325 mg capsule 325 mg PO Q6H PRN 08/09/22 (Tylenol) Allergies Allergy/AdvReac Type Severity Reaction Status Date / Time fesoterodine [From Toviaz] Allergy Mild loopy and Verified 08/09/22 11:58 unsteady ciprofloxacin Allergy Unknown Unknown Verified 08/09/22 11:58 house dust Allergy Unknown seansonal Verified 08/09/22 11:58 meloxicam Allergy Unknown Unknown Verified 08/09/22 11:58 mold Allergy Unknown seasonal Verified 08/09/22 11:58 Penicillins Allergy Unknown Rash Verified 08/09/22 11:58 donepezil [From Namzaric] Allergy confusion Verified 08/09/22 11:58 memantine [From Namzaric] Allergy confusion Verified 08/09/22 11:58 [facility] Past Medical History Medical History Arthritis of knee Hyperlipidemia type III Hypothyroidism, acquired, autoimmune SUNDEEP (obstructive sleep apnea) Primary osteoarthritis of right knee Vitamin D deficiency, unspecified Surgical History Surgical History H/O brain surgery (~1978) 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 status Family History Family History Father Patient's father is Malignant neoplasm of prostate Sibling Patient's sister is Grandparent Family history of arthritis Other Cerebrovascular accident Diabetes mellitus Family history of malignant neoplasm Family history of malignant neoplasm of breast Hypertension Social History Social History Social History: Smoking status: Never smoker Second hand tobacco smoke exposure: No Alcohol intake: former Alcohol use details: Occasionally Substance use: never Substance use type: does not use Lack of Transportation: No Lack of Food: Never True Current Housing: I Have Housing Concerned About Future Housing: No Difficulty Paying Gas/Electric Bills: No Difficulty Paying for Meds: No Currently Unemployed: No Education: High School Diploma/GED Difficulty w/ Childcare or Family Care: No Living arrangements: assisted living Occupation/Education: retired Gender identity (if verbalized by the patient): Female Sexual Orientation (if Verbalized by the Patient): Straight or Heterosexual Exam Narrative: APPEARANCE: No apparent distress. A&O times 1-2 Head: atraumatic. EYES: EOMI, pupils 2 mm equal reactive NOSE: Atraumatic NECK: Trachea midline RESPIRATORY: No increased rate of breathing, clear to auscultation CARDIOVASCULAR: RRR, ABDOMINAL: Non-distended MUSCULOSKELETAl: head to toe trauma exam revealed the eyebrow injury, pain on movement of the right elbow and bruising and swelling to the left mayers
[2022-10-15 18:19] LABS: Basophils Absolute Auto 0.1 K/mm3 (0.0-0.1); Basophils Percent Auto 0.6 % (0.2-1.2); Eosinophils Absolute Auto 0.1 K/mm3 (0-0.3); Eosinophils Percent Auto 0.6 % (0-4.4); Hematocrit 29.3 % (37.0-47.0); Hemoglobin 9.2 g/dL (12.0-15.0); Immature Granulocyte Absolute 0.03 K/mm3 (0.00-0.031); Immature Granulocyte Percent A 0.4 % (0-0.5); Lymphocytes Absolute Auto 1.07 K/mm3 (0.9-3.2); Lymphocytes Percent Auto 12.8 % (18.3-44.2); Mean Corpuscular HGB Conc 31.4 g/dl (32-36); Mean Corpuscular Hemoglobin 29.3 pg (26-34); Mean Corpuscular Volume 93.3 fl (80-100); Mean Platelet Volume 11.4 fl (7.4-10.4); Monocytes Absolute Auto 0.6 K/mm3 (0.1-0.6); Monocytes Percent Auto 7.6 % (2.6-8.5); Neutrophils Absolute Auto 6.5 K/mm3 (1.3-6.7); Platelet Count Result 206 k/mm3 (150-375); Red Blood Count 3.14 M/mm3 (4.2-5.4); Red Cell Distribution Width 14.9 % (11.5-14.5); White Blood Count 8.4 K/mm3 (4.5-10.0)
[2022-10-15] MEDS: LIDO 1%/EPINEPHRINE 1:100,000 20 ML VIAL 10 ML INFILTRATE (18:24)
[2022-10-15] MEDS: SODIUM CHLORIDE 0.9% IV 1,000 ML 999 ML IV CONT (18:25)
[2022-10-15] MEDS: TETANUS,DIPHTHERIA,AC PERTUSSIS ADULT (0.5 ML) BOOSTRIX IM (18:26)
[2022-10-15 18:29] LABS: Partial Thromboplastin Time 34.3 SECONDS (22.3-36.8); Prothrombin Time 13.4 Seconds (11.1-14.7)
[2022-10-15 18:48] LABS: Alanine Aminotransferase 30 U/L (6-35); Alkaline Phosphatase 148 U/L (38-126); Anion Gap 5 mmol/L (8-16); Aspartate Amino Transferase 29 U/L (14-36); Bilirubin,Total 0.5 mg/dL (0.2-1.3); Blood Urea Nitrogen 28 mg/dL (7-17); Carbon Dioxide 28 mmol/L (22-30); Chloride 105 mmol/L (98-107); Creatine Kinase 38 U/L (30-135); Estimated CRCL calculation 63 ml/min; Estimated Glomerular Filt Rate > 60; Glucose 104 mg/dL (65-110); Lipase 114 U/L (23-300); Magnesium 2.2 mg/dL (1.6-2.3); Phosphorus 2.4 mg/dL (2.5-4.5); Potassium 4.5 mmol/L (3.4-5.0); Sodium 138 mmol/L (137-145)
[2022-10-15 18:57] LABS: NT Pro B Type Natriuretic Pept 431 pg/mL (19.9-100)
[2022-10-15 18:59] LABS: Troponin I < 0.012 ng/mL (0.000-0.034)
[2022-10-15 19:05] LABS: Appearance Urine Turbid (Clear); Bacteria Urine 4+ /hpf; Bilirubin Urine Negative (Negative); Blood Urine 1+ (Negative); Color Urine Yellow (Yellow); Glucose Urine UA Negative (Negative); Hyaline Casts Urine Present /lpf; Ketones Urine Negative (Negative); Leukocyte Esterase Ur 3+ LEU/UL (Negative); Nitrate Urine Positive (Negative); Non Pathogenic Casts 0-2; Protein Urine Negative (Negative); RBC Urine 51-100 /hpf (0-2); Specific Grav Ur 1.013 (1.001-1.035); Squamous Epithelial Cell Urine None seen /hpf (Few); WBC Urine 51-100 /hpf
[2022-10-15 19:07] LABS: Add Urine Microscopic? YES
[2022-10-15 19:14] LABS: Influenza A QL RT-PCR Negative (Negative); Influenza B QL RT-PCR Negative (Negative); RSV RNA, RT-PCR Negative (Negative); SARS-CoV-2 RNA PCR Negative (Negative)
--- NOTE | 2022-10-21 18:01 | PC.NURSE ---
Late entry note: 2030 ceftriaxone stopped.
== END 2022-10-15 20:37 ==
PROVIDERS: Emergency Provider Emergency Medicine; PCP Family Medicine
DX: S01.112A Laceration without foreign body of left eyelid and periocular area, initial encounter (principal); S60.222A Contusion of left hand, initial encounter; Z23 Encounter for immunization; Z20.822 Contact with and (suspected) exposure to COVID-19; F03.90 Unspecified dementia, unspecified severity, without behavioral disturbance, psychotic disturbance, mood disturbance, and anxiety; E03.9 Hypothyroidism, unspecified; E55.9 Vitamin D deficiency, unspecified; G47.33 Obstructive sleep apnea (adult) (pediatric); M17.11 Unilateral primary osteoarthritis, right knee; Z98.2 Presence of cerebrospinal fluid drainage device; R82.998 Other abnormal findings in urine; R94.31 Abnormal electrocardiogram [ECG] [EKG]; W19.XXXA Unspecified fall, initial encounter
CPT/HCPCS: 12013; 36415; 70450; 70486; 71045; 72125; 72170; 73080; 73130; 80053; 81001; 82550; 83605; 83690; 83735; 83880; 84100; 84484; 85025; 85610; 85730; 87077; 87086; 87186; 87637; 90471; 90715; 93005; 96361; 96365; 99284; J0696; J7030

== ENCOUNTER 2023-02-02 10:42 | Emergency (ER) | payer MEDICARE, SELFPAY ==
[2023-02-02] VITALS (19 sets, daily range): BP systolic 125–136; BP diastolic 48–70; PULSE 80; RESP 18–20; TEMP 36.6–36.7; O2SAT 92–100
--- NOTE | ~2023-02-02 | CT_ITS ---
EXAMINATION: CT cervical spine wo con DATE: 02/02/2023 11:41 INDICATION: Head injury. TECHNIQUE: Computed tomography (CT) of the cervical spine was performed without intravenous contrast. Automated exposure control and iterative reconstruction technique were employed. The dose-length pro duct was 331.67 mGy-cm. COMPARISON: CT cervical spine 10/15/2022 FINDINGS: There is a ventriculostomy catheter in the right lateral ventricle. There is 17 degrees dex troscoliosis of cervicothoracic spine. Vertebral body heights are normal. There is moderately decreas ed disc height at C3-C4, severely decreased disc height at C4-C5, mildly decreased disc height at C5- C6, and severely decreased disc height at C6-C7. The following disc levels are specifically discussed : C2-C3: There is mild bilateral uncovertebral joint osteoarthritis. There is mild right and severe lef t facet joint osteoarthritis. There is mild left neural foraminal stenosis. There is no central canal stenosis. C3-C4: There is severe bilateral uncovertebral joint osteoarthritis. There is severe bilateral facet joint osteoarthritis. There is moderate right and mild left neural foraminal stenosis. There is mild central canal stenosis. C4-C5: There is mild bilateral uncovertebral joint osteoarthritis. There is moderate and severe left facet joint osteoarthritis. There is mild left neural foraminal stenosis. There is mild central canal stenosis. C5-C6: There is mild bilateral uncovertebral joint osteoarthritis. There is severe left facet joint o steoarthritis. There is mild left neural foraminal stenosis. There is no central canal stenosis. C6-C7: There is severe right and moderate left uncovertebral joint osteoarthritis. There is mild righ t and severe left facet joint osteoarthritis. There is mild right neural foraminal stenosis. There is mild central canal stenosis. C7-T1: There is no uncovertebral joint osteoarthritis. There is mild bilateral facet joint osteoarthr itis. There is no neural foraminal stenosis. There is no central canal stenosis. IMPRESSION: 1. No fracture. 2. Severe cervical spondylosis. 3. Cervicothoracic dextroscoliosis. Reviewed, dictated and finalized at location A.
--- NOTE | ~2023-02-02 | XR_ITS ---
EXAMINATION: XR chest 1V portable DATE: 02/02/2023 13:08 INDICATION: Fall. TECHNIQUE: A single frontal view of the chest was obtained. COMPARISON: Chest single view 10/15/2022 FINDINGS: There is no pneumonia, pleural effusion, or pneumothorax. The heart size is normal. A right -sided ventriculoperitoneal shunt is noted. IMPRESSION: 1. No acute cardiopulmonary disease. Reviewed, dictated and finalized at location A.
--- NOTE | ~2023-02-02 | CT_ITS ---
EXAMINATION: CT brain wo con INDICATION: Head injury COMPARISON: 10/15/2022 TECHNIQUE: Standard unenhanced head CT. The dose-length product (DLP) was 681.00 mGy-cm. The mA was a djusted according to patient size. Iterative reconstruction technique was employed. FINDINGS: No acute intraparenchymal hemorrhage. No evidence of mass lesion. No evidence of acute infa rction. There is a large right parietal scalp hematoma. Again noted is a right temporooccipital appro ach ventriculostomy coursing through the right lateral ventricle and ending with its tip in the right frontal lobe. There is mild periventricular and subcortical hypodensity probably related to small ve ssel ischemic disease. There is mild prominence of the sulci and ventricles related to cerebral atrop hy. Intracranial calcified cerebral atherosclerosis is noted. No extra-axial collections. No mass eff ect or midline shift. Changes in the globes are likely from ocular lens surgery. There is mild mucosa l thickening of the paranasal sinuses. A chronic right mastoid effusion is noted. IMPRESSION: 1. Right parietal scalp hematoma without acute intracranial abnormality. 2. Age related findings. Reviewed, dictated and finalized at location L.
--- NOTE | ~2023-02-02 | XR_ITS ---
EXAMINATION: XR pelvis 1-2V DATE: 02/02/2023 11:57 INDICATION: Pelvic pain. Fall. TECHNIQUE: An anteroposterior view of the pelvis was obtained. COMPARISON: Pelvis radiograph 10/15/2022 FINDINGS: There is lumbar levoscoliosis and severe spondylosis. No fracture. There is mild osteoarthr itis of the hips. IMPRESSION: 1. Mild osteoarthritis of the hips. Reviewed, dictated and finalized at location A.
--- NOTE | ~2023-02-02 | XR_ITS ---
EXAMINATION: XR elbow LT 2V DATE: 02/02/2023 13:08 INDICATION: Left elbow injury. Fall. TECHNIQUE: 2 views of left elbow were obtained. COMPARISON: None. FINDINGS: Bone alignment is normal. No fracture. Joint spaces are normal. No elbow joint effusion. IMPRESSION: 1. Normal left elbow. Reviewed, dictated and finalized at location A. IMPRESSION: 1. Normal left elbow.
--- NOTE | 2023-02-02 13:20 | ED.FALL ---
HPI - Fall General Chief Complaint: Fall Stated Complaint: fall Time Seen by Provider: 02/02/23 11:55 History of Present Illness HPI Narrative: Patient is a 77-year-old female who presents to the emergency department at this morning secondary to a fall. Patient admits that the fall was purely mechanical, stating that she slipped and fell. Patient did not lose any consciousness and remembers the whole event. She denies any syncopal or lightheadedness or dizziness episodes prior to the fall stating that the cause was a slip. She is currently complaining of mild pain to her right hip and left elbow and mild pain to the back of her head, otherwise denying any additional symptoms. Patient denies any chest pain, shortness of breath, nausea, vomiting, abdominal pain, dysuria, hematuria, constipation, diarrhea, melena, hematochezia, fevers or chills. She also denies any dizziness, lightheadedness, blurry visions, focal weakness, numbness and or tingling. There are no other modifying, alleviating, or precipitating factors at this time. Related Data Home Medications Medication Instructions Recorded Confirmed azelastine 137 mcg (0.1 %) nasal 1 spray intranasal Q12H 04/01/22 04/01/22 spray aerosol fluticasone propionate 50 1 spray intranasal BID 04/01/22 04/01/22 mcg/actuation nasal spray,suspension (Allergy Relief (fluticasone)) levothyroxine 25 mcg capsule 25 mcg PO DAILY 04/01/22 04/01/22 uqnphjie-ujre-osev 8 mg-folic 400 1 tablet PO DAILY 04/01/22 04/01/22 mcg-K 50 mcg-lutein 300 mcg tablet ([facility]) acetaminophen 325 mg capsule 325 mg PO Q6H PRN 08/09/22 (Tylenol) Allergies Allergy/AdvReac Type Severity Reaction Status Date / Time fesoterodine [From Toviaz] Allergy Mild loopy and Verified 02/02/23 10:47 unsteady ciprofloxacin Allergy Unknown Unknown Verified 02/02/23 10:47 house dust Allergy Unknown seansonal Verified 02/02/23 10:47 meloxicam Allergy Unknown Unknown Verified 02/02/23 10:47 mold Allergy Unknown seasonal Verified 02/02/23 10:47 Penicillins Allergy Unknown Rash Verified 02/02/23 10:47 donepezil [From Namzaric] Allergy confusion Verified 02/02/23 10:47 memantine [From Namzaric] Allergy confusion Verified 02/02/23 10:47 Review of Systems Review of Systems: All systems are reviewed and are negative unless stated otherwise in the HPI. 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 Family History Family History Father Patient's father is Malignant neoplasm of prostate Sibling Patient's sister is Grandparent Family history of arthritis Other Cerebrovascular accident Diabetes mellitus Family history of malignant neoplasm Family history of malignant neoplasm of breast Hypertension Social History Social History Social History: Smoking status: Never smoker Second hand tobacco smoke exposure: No Alcohol intake: former Alcohol use details: Occasionally Substance use: never Substance use type: does not use Lack of Transportation: No Lack of Food: Never True Current Housing: I Have Housing Concerned About Future Housing: No Difficulty Paying Gas/Electric Bills: No Difficulty Paying for Meds: No Currently Unemployed: No Education: High School Diploma/GED Difficulty w/ Childcare or Family Care: No Living arrangements: assisted living Occupation/Education: retired Gender identity (if verba
[2023-02-02] MEDS: ACETAMINOPHEN 325 MG TABLET 650 MG PO (13:37)
== END 2023-02-02 13:47 | disposition home or self-care (01) ==
PROVIDERS: Emergency Provider Emergency Medicine; PCP Family Medicine
DX: S00.03XA Contusion of scalp, initial encounter (principal); E06.3 Autoimmune thyroiditis; E55.9 Vitamin D deficiency, unspecified; E78.2 Mixed hyperlipidemia; G47.33 Obstructive sleep apnea (adult) (pediatric); M17.11 Unilateral primary osteoarthritis, right knee; M16.0 Bilateral primary osteoarthritis of hip; M47.812 Spondylosis without myelopathy or radiculopathy, cervical region; W01.0XXA Fall on same level from slipping, tripping and stumbling without subsequent striking against object, initial encounter
CPT/HCPCS: 70450; 71045; 72125; 72170; 73070; 99284; A9270

== ENCOUNTER 2024-02-28 15:26 | Emergency (ER) | payer MEDICARE, SELFPAY ==
--- NOTE | ~2024-02-28 | CT_ITS ---
CT brain wo con Ordering provider: Candice Méndez MD History: 78 years Female with . fall . Comparison: None. Technique: CT of the head without contrast. Radiation reduction technique utilized.The dose-length product was 605.33 mGy-cm. FINDINGS: BRAIN PARENCHYMA AND CSF SPACES: Right parietal shunt tube is seen with the tip in the brain tissues anterior to the right frontal horn. Mild to moderate hydrocephalus. No midline shift, mass effect or hemorrhage. The brain parenchyma and CSF spaces are otherwise marva l. VISUALIZED PARANASAL SINUSES: Well aerated. MASTOIDS: Well aerated. BONES: The bones appear intact. SOFT TISSUES: , Visualized nasopharynx is normal. Right frontal scalp hematoma. OtherwiseSuperficial soft tissues are normal. IMPRESSION: No acute intracranial findings. Hydrocephalus. Reviewed, dictated and finalized at location A. 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
--- NOTE | ~2024-02-28 | CT_ITS ---
EXAMINATION: CT cervical spine wo con DATE: 02/28/2024 16:05 INDICATION: Neck injury. Fall. TECHNIQUE: Computed tomography (CT) of the cervical spine was performed without intravenous contrast. Automated exposure control and iterative reconstruction technique were employed. The dose-length pro duct was 217.22 mGy-cm. COMPARISON: CT cervical spine 02/02/2023 FINDINGS: There is a right-sided ventriculoperitoneal shunt. There is a right mastoid effusion. There is 12 degrees dextroscoliosis of cervical spine. Vertebral body heights are normal. There is mildly decreased disc height at C2-C3, severely decreased disc height at C4-C5, mildly decreased disc height at C5-C6, and severely decreased disc height at C6-C7. The following disc levels are specifically di scussed: C2-C3: There is mild left uncovertebral joint osteoarthritis. There is mild right and severe left fac et joint osteoarthritis. There is mild left neural foraminal stenosis. There is no central canal sten osis. C3-C4: There is severe bilateral uncovertebral joint osteoarthritis. There is severe bilateral facet joint osteoarthritis. There is moderate bilateral neural foraminal stenosis. There is mild central ca nal stenosis. C4-C5: There is mild right and severe left uncovertebral joint osteoarthritis. There is severe bilate ral facet joint osteoarthritis. There is mild left neural foraminal stenosis. There is mild central c anal stenosis. C5-C6: There is mild bilateral uncovertebral joint osteoarthritis. There is severe left facet joint o steoarthritis. There is mild left neural foraminal stenosis. There is mild central canal stenosis. C6-C7: There is severe bilateral uncovertebral joint osteoarthritis. There is mild right and severe l eft facet joint osteoarthritis. There is mild bilateral neural foraminal stenosis. There is mild cent ral canal stenosis. C7-T1: There is no uncovertebral joint osteoarthritis. There is mild bilateral facet joint osteoarthr itis. There is no neural foraminal stenosis. There is no central canal stenosis. IMPRESSION: 1. No fracture. 2. Severe cervical spondylosis. 3. Cervical dextroscoliosis. Reviewed, dictated and finalized at location A. ENT ACCOUNTS MANAGER
[2024-02-28 15:40] VITALS: BP 125/52; PULSE 87; RESP 17; TEMP 36.6; O2SAT 98
--- NOTE | 2024-02-28 16:39 | ED.FALL ---
HPI - Fall General Chief Complaint: Fall Stated Complaint: FALL Time Seen by Provider: 02/28/24 15:57 History of Present Illness HPI Narrative: patient presenting with ground level fall during transferring a patient. She is currently neurologically at baseline. Did have head injury, not on blood thinners. 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 She is only reporting some slight neck pain. Related Data Home Medications Medication Instructions Recorded Confirmed azelastine 137 mcg (0.1 %) nasal 1 spray intranasal Q12H 04/01/22 04/01/22 spray fluticasone propionate 50 1 spray intranasal BID 04/01/22 04/01/22 mcg/actuation nasal spray,suspension (Allergy Relief (fluticasone)) levothyroxine 25 mcg capsule 25 mcg PO DAILY 04/01/22 04/01/22 ylmuzomj-toop-uysp 8 mg-folic 400 1 tablet PO DAILY 04/01/22 04/01/22 mcg-K 50 mcg-lutein 300 mcg tablet ([facility]) acetaminophen 325 mg capsule 325 mg PO Q6H PRN 08/09/22 (Tylenol) Allergies Allergy/AdvReac Type Severity Reaction Status Date / Time fesoterodine [From Toviaz] Allergy Mild loopy and Verified 02/02/23 10:47 unsteady ciprofloxacin Allergy Unknown Unknown Verified 02/02/23 10:47 house dust Allergy Unknown seansonal Verified 02/02/23 10:47 meloxicam Allergy Unknown Unknown Verified 02/02/23 10:47 mold Allergy Unknown seasonal Verified 02/02/23 10:47 Penicillins Allergy Unknown Rash Verified 02/02/23 10:47 donepezil [From Namzaric] Allergy confusion Verified 02/02/23 10:47 memantine [From Namzaric] Allergy confusion Verified 02/02/23 10:47 Review of Systems Review of Systems: All systems reviewed & are unremarkable except as noted in HPI and below PMFSH Past Medical History Medical History Arthritis of knee Hyperlipidemia type III Hypothyroidism, acquired, autoimmune SUNDEEP (obstructive sleep apnea) Primary osteoarthritis of right knee Vitamin D deficiency, unspecified Surgical History Surgical History H/O brain surgery (~1978) 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 (ventriculoperitoneal) shunt status Family History Family History Father Patient's father is Malignant neoplasm of prostate Sibling Patient's sister is Grandparent Family history of arthritis Other Cerebrovascular accident Diabetes mellitus Family history of malignant neoplasm Family history of malignant neoplasm of breast Hypertension Social History Social History Social History: Smoking status: Never smoker Second hand tobacco smoke exposure: No Alcohol intake: former Alcohol use details: Occasionally Substance use: never Substance use type: does not use Lack of Transportation: No Lack of Food: Never True Current Housing: I Have Housing Concerned About Future Housing: No Difficulty Paying Gas/Electric Bills: No Difficulty Paying for Meds: No Currently Unemployed: No Education: High School Diploma/GED Difficulty w/ Childcare or Family Care: No Living arrangements: assisted living Occupation/Education: retired Gender identity (if verbalized by the patient): Female Sexual Orientation (if Verbalized by the Patient): Straight or Heterosexual Exam Narrative: EXAMINATION OF ORGAN SYSTEMS/BODY AREAS: Constitutional: Vital signs per nursing GENERAL:[No acute distress, non-toxic appearing.] HEAD: Bruising to forehead EYES: EOMI, conjunctiva normal ENT: Hearing grossly intact LUNGS: Nonlabored breathing. HEART: [Regular rate and rhythm], no chest wall tenderness ABD: [Soft], [nontender to palpation] EXT: a nontender to palpation to any extremity SKIN: bruising to face NEURO: [Alert. No gross focal sensory or strength deficits.] PSYCH: Normal affect Course Vital Signs Vital signs: Vital Signs Temperature 97.8 F 02/28/24 15:40 Pulse Rate 87 02/28/24 15:40 Respiratory Rate 17 02/28/24 15:40 Blood Pressure 125/52 L 02/28/24 15:40 Pulse Oximetry 98 02/28/24 15:40 Oxygen Delivery Room Air 02/28/24 15:40 Temperature 97.8 F 02/28/24 15:40 Pulse Rate 87 02/28/24 15:40 Respiratory Rate 17 02/28/24 15:40 Blood Pressure 125/52 L 02/28/24 15:40 Pulse Oximetry 98 02/28/24 15:40 Oxygen Delivery Room Air 02/28/24 15:40 MDM - Fall MDM Narrative Medical decision making narrative: 1) Differential diagnosis: Intracranial hemorrhage, fractures 2) Comorbidities: 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 shunt, weakness 3) External notes reviewed: PCP notes 4) History sources independently obtained from: son at bedside 5) Discussion of management with: [] 6) Independent interpretation of: [] 7) Diagnostic tests or therapies considered but not ordered: [] 8) Social determinants of health: [] 9) Shared decision making: patient presenting with ground level fall, she is otherwise neurologically at baseline currently, she does have this forehead hematoma, CT head and C-spine obtained thankfully without acute abnormality. Will be discharged with return precautions and follow-up to PCP. Discharge Plan Discharge Clinical Impression: Head injury Patient Disposition: NH Mcfp/Asst Living Condition: Stable Instructions: Antibiotic Form Additional Instructions: Please follow up with your doctor; you can always return for any further issues. Prescriptions: No Action acetaminophen [Tylenol] 325 mg capsule 325 mg PO Q6H PRN azelastine 137 mcg (0.1 %) aerosol,spray 1 spray intranasal Q12H Rx Instructions: administer into each nostril fluticasone propionate [Allergy Relief (fluticasone)] 50 mcg/actuation spray,suspension 1 spray intranasal BID Rx Instructions: administer into each nostril levothyroxine 25 mcg capsule 25 mcg PO DAILY [facility] 8 mg iron-400 mcg-300 mcg tablet 1 tablet PO DAILY cefdinir 300 mg capsule 300 mg PO Q12H Qty: 14 0RF buspirone 5 mg tablet 5 mg PO BID Qty: 60 3RF Follow-up/Referrals: Thompson Proctor MD [Primary Care Provider] - 2 Days
== END 2024-02-28 18:55 ==
PROVIDERS: Emergency Provider Emergency Medicine; PCP Family Medicine
DX: S09.90XA Unspecified injury of head, initial encounter (principal); E03.9 Hypothyroidism, unspecified; W19.XXXA Unspecified fall, initial encounter
CPT/HCPCS: 70450; 72125; 99284

== ENCOUNTER 2024-03-20 20:36 | Emergency (ER) | payer MEDICARE, SELFPAY ==
--- NOTE | ~2024-03-20 | CT_ITS ---
EXAMINATION: CT thoracic lumbar wo con DATE: 03/20/2024 21:51 INDICATION: Fall with right clavicle fracture and shoulder pain. TECHNIQUE: Computed tomography (CT) of the thoracic spine was performed without intravenous contrast. Automated exposure control and iterative reconstruction technique were employed. The dose-length pro duct was 1681.98 mGy-cm. COMPARISON: None FINDINGS: Thoracic spine: 35 degrees upper thoracic levoscoliosis. Sagittal alignment is normal. Vertebral body heights are nor mal. No acute fracture. Schmorl's nodes along a few endplates in the lower thoracic spine. Mild to mo derate disc height loss with prominent in the mid to upper thoracic spine. No central canal stenosis and minimal to mild neural foraminal stenosis a few levels. Mild emphysema with mild dependent atelec tasis in both lungs. No pneumonia, pulmonary edema, pleural effusion or pneumothorax. Heart size is n ormal. No pericardial effusion. Thoracic aorta is normal in caliber. No pathologically enlarged thora cic lymphadenopathy. Lumbar spine: 15 degrees lumbar levoscoliosis. Sagittal alignment is normal. Vertebral body heights are normal. No fracture. Severe disc height loss on the right at L3-L4 and on the left at L4-L5. Moderate disc heigh t loss at L4-L5. Mild to moderate right-sided predominant disc height loss at L2-L3 and mild disc hei ght loss at L1-L2 and the more cephalad lower thoracic levels. Disc bulges resulting in mild central canal stenosis at L2-L3, moderate central canal stenosis at L3-L4, moderate to severe central canal s tenosis at L4-L5 and without significant central canal stenosis at L5-S1. Severe facet osteoarthritis on the left at L5-S1 and bilaterally at L4-L5. Mild to moderate facet osteoarthritis and remainder o f the lumbar spine. There is moderate neural foraminal stenosis on the left at L4-L5 and more promine ntly at L5-S1. Mild neural foraminal stenosis at many of the remaining lumbar neural foramina. There is a catheter and the anterior pelvis anterior to the bladder. Diverticulosis along the sigmoid colon without adjacent from trace stranding to suggest diverticulitis. IMPRESSION: 1. 35 degrees upper thoracic levoscoliosis with moderate spondylosis. No acute osseous abnormality. 2. 15 degrees lumbar levoscoliosis with severe spondylosis. No acute osseous abnormality. Reviewed, dictated and finalized at location A. ING MACHINE CLEANER IMPRESSION: 1. 35 degrees upper thoracic levoscoliosis with moderate spondylosis. No acute osseous abnormality. 2. 15 degrees lumbar levoscoliosis with severe spondylosis. No acute osseous ab normality.
--- NOTE | ~2024-03-20 | CT_ITS ---
EXAMINATION: CT diagnostic chest wo con DATE: 03/20/2024 21:51 INDICATION: RIGHT SCAPULA, RIGHT SHOULDER pain post fall. Right clavicle fracture. TECHNIQUE: Computed tomography (CT) of the chest was performed without intravenous contrast. Addition al 3D reconstructions utilizing coronal maximum intensity projection (MIP) were performed. Automated exposure control and iterative reconstruction technique were employed. The dose-length product was 30 9.52 mGy-cm. COMPARISON: None FINDINGS: Mild emphysema. Mild dependent atelectasis in the bilateral lower lobes. 7 x 5 mm pleural-based nodul e at the posterior left lower lobe. No pulmonary edema, pleural effusion or pneumothorax. Heart size is normal. No pericardial effusion. Thoracic aorta is normal in caliber. No pathologically enlarged t horacic lymphadenopathy. Visualized upper abdomen is unremarkable. 1 cm anterior displacement of a mi ldly comminuted fractures of the right clavicle occurring lateral to the level of the coracoclavicula r ligament. There is suggestion of a minimally displaced fracture line extending to the articular luis manuel face of the right acromioclavicular joint where there is moderate osteoarthritis. No other acute frac tures identified. There is upper thoracic levoscoliosis with moderate spondylosis.. IMPRESSION: 1. 1 cm displacement of an extra articular fracture of the lateral right clavicle. 2. Mild emphysema and mild dependent atelectasis. No acute cardiopulmonary disease. 3. Indeterminate 7 x 5 mm left lower lobe pulmonary nodule. Recommend 6 month follow-up low-dose nonc ontrast chest CT. Reviewed, dictated and finalized at location A. STS' BOOKING REPRESENTATIVE IMPRESSION: 1. 1 cm displacement of an extra articular fracture of the lateral right clavic le. 2. Mild emphysema and mild dependent atelectasis. No acute cardiopulmonary dise ase. 3. Indeterminate 7 x 5 mm left lower lobe pulmonary nodule. Recommend 6 month f ollow-up low-dose noncontrast chest CT.
--- NOTE | ~2024-03-20 | CT_ITS ---
EXAMINATION: CT brain wo con DATE: 03/20/2024 21:51 INDICATION: Dementia, overt and oriented by 2 post fall with clavicle fracture. TECHNIQUE: Computed tomography (CT) of the head was performed without intravenous contrast. Sagittal and coronal reconstructions were performed. The mA was adjusted according to patient size. Iterative reconstruction technique was employed. The dose-length product was 681.00 mGy-cm. COMPARISON: head CT dated 02/28/2024 FINDINGS: Unchanged ventriculoperitoneal shunt with which enters through a right parietal jt hole and extends from the occipital horn to the anterior horn of the right lateral ventricle with distal tip in the p eriventricular right frontal lobe. No calvarial fracture. No acute intracranial hemorrhage, acute inf arction or abnormal extra axial fluid collection. There is mild scattered white matter hypoattenuatio n consistent with chronic small vessel ischemic disease. Ventricles are normal and symmetric. No mas s/mass effect. Changes of bilateral intraocular lens replacement. Chronic small right mastoid effusio n. Left mastoid air cells, middle ear cavities and paranasal sinuses are all clear. IMPRESSION: 1. No fracture or acute intracranial process. 2. Unchanged ventriculoperitoneal shunt which courses from posterior to anterior across the right lat eral ventricle with tip in the anterior right frontal periventricular white matter. Ventricles are un changed. 4. Mild scattered white matter hypoattenuation consistent with chronic small vessel ischemic disease. Reviewed, dictated and finalized at location A. RAL MILLING SUPERINTENDENT IMPRESSION: 1. No fracture or acute intracranial process. 2. Unchanged ventriculoperitoneal shunt which courses from posterior to anterio r across the right lateral ventricle with tip in the anterior right frontal per iventricular white matter. Ventricles are unchanged. 4. Mild scattered white matter hypoattenuation consistent with chronic small ve ssel ischemic disease.
--- NOTE | ~2024-03-20 | CT_ITS ---
EXAMINATION: CT cervical spine wo con DATE: 03/20/2024 21:51 INDICATION: Fall with clavicle fracture and right shoulder pain. TECHNIQUE: Computed tomography (CT) of the cervical spine was performed without intravenous contrast. Automated exposure control and iterative reconstruction technique were employed. The dose-length pro duct was 325.02 mGy-cm. COMPARISON: 02/28/2024 FINDINGS: Partially visualized ventricular shunt coursing along the right side of the neck and along the anteri or right chest wall.18 degree cervical dextrocurvature. Sagittal alignment is normal. Vertebral body heights are normal. No acute fracture. Unchanged severe cervical spondylosis. See the recent prior ce rvical spine CT from 02/28/2024 for further detail and level by level analysis. Mild emphysema and mil d right apical pleural-parenchymal scarring. IMPRESSION: 1. Cervical dextrocurvature scoliosis with severe spondylosis. No acute osseous abnormality. Reviewed, dictated and finalized at location A. SIONS TESTING TECHNICIAN
[2024-03-20 20:38] VITALS: BP 122/76; PULSE 70; RESP 19; TEMP 36.8; O2SAT 100
[2024-03-20 20:47] VITALS: BP 122/76; PULSE 70; RESP 19; TEMP 36.8; O2SAT 100
--- NOTE | 2024-03-20 20:50 | ED_ITS ---
HPI - Extremity Injury (Upper) General Chief Complaint: Extremity Injury, Upper <Dayan Mccray MD - Last Filed: 03/20/24 22:06> Stated Complaint: RIGHT SHOULDER INJURY <Dayan Mccray MD - Last Filed: 03/20/24 22:06> Time Seen by Provider: 03/20/24 20:49 <Dayan Mccray MD - Last Filed: 03/20/24 22:06> Source: patient and EMS <Dayan Mccray MD - Last Filed: 03/20/24 22:06> Mode of arrival: EMS <Dayan Mccray MD - Last Filed: 03/20/24 22:06> Limitations: physical limitation and dementia <Dayan Mccray MD - Last Filed: 03/20/24 22:06> History of Present Illness HPI narrative: 78 YEARS OLD WHITE FEMALE CAME FROM CARE HOME BY AMBULANCE BECAUSE OF PAIN AT THE RIGHT CLAVICLE.. PATIENT HAD A FALL ON FEBRUARY 27, CAME TO OUR EMERGENCY ROOM AT THAT TIME, CT SCAN OF THE HEAD AND CERVICAL SPINE SHOWED NO ACUTE ABNORMALITIES. PATIENT BEEN HAVING PAIN AT THE RIGHT CLAVICULAR AREA, X- RAY WAS ORDERED TODAY AND SHOWED 1 FINDINGS ARE CONCERNING FOR AN ACUTE, NONDISPLACED DISTAL CLAVICULAR FRACTURE. <Dayan Mccray MD - Last Filed: 03/20/24 22:06> Related Data Home Medications: Home Medications Medication Instructions Recorded Confirmed azelastine 137 mcg (0.1 %) nasal 1 spray intranasal Q12H 04/01/22 04/01/22 spray fluticasone propionate 50 1 spray intranasal BID 04/01/22 04/01/22 mcg/actuation nasal spray,suspension (Allergy Relief (fluticasone)) levothyroxine 25 mcg capsule 25 mcg PO DAILY 04/01/22 04/01/22 ozcjbvvh-fuzl-bwap 8 mg-folic 400 1 tablet PO DAILY 04/01/22 04/01/22 mcg-K 50 mcg-lutein 300 mcg tablet ([facility]) acetaminophen 325 mg capsule 325 mg PO Q6H PRN 08/09/22 (Tylenol) <Dayan Mccray MD - Last Filed: 03/20/24 22:06> Allergies/Adverse Reactions: Allergies Allergy/AdvReac Type Severity Reaction Status Date / Time fesoterodine [From Toviaz] Allergy Mild loopy and Verified 02/02/23 10:47 unsteady ciprofloxacin Allergy Unknown Unknown Verified 02/02/23 10:47 house dust Allergy Unknown seansonal Verified 02/02/23 10:47 meloxicam Allergy Unknown Unknown Verified 02/02/23 10:47 mold Allergy Unknown seasonal Verified 02/02/23 10:47 Penicillins Allergy Unknown Rash Verified 02/02/23 10:47 donepezil [From Namzaric] Allergy confusion Verified 02/02/23 10:47 memantine [From Namzaric] Allergy confusion Verified 02/02/23 10:47 <Dayan Mccray MD - Last Filed: 03/20/24 22:06> Review of Systems Review of Systems: All systems reviewed & are unremarkable except as noted in HPI and below <Dayan Mccray MD - Last Filed: 03/20/24 22:06> PMFSH Past Medical History Medical History: Medical History Arthritis of knee Hyperlipidemia type III Hypothyroidism, acquired, autoimmune SUNDEEP (obstructive sleep apnea) Primary osteoarthritis of right knee Vitamin D deficiency, unspecified <Dayan Mccray MD - Last Filed: 03/20/24 22:06> Surgical History Surgical History: Surgical History H/O brain surgery (~1978) WASTE MACHINE TENDER (ventriculoperitoneal) shunt status <Dayan Mccray MD - Last Filed: 03/20/24 22:06> Family History Family History: Family History Father Patient's father is Malignant neoplasm of prostate Sibling Patient's sister is Grandparent Family history of arthritis Other Cerebrovascular accident Diabetes mellitus Family history of malignant neoplasm Family history of malignant neoplasm of breast Hypertension <Dayan Mccray MD - Last Filed: 03/20/24 22:06> Social History Social History: Social History Social History: Smoking status: Never smoker Second hand tobacco smoke exposure: No Alcohol intake: former Alcohol use details: Occasionally Substance use: never Substance use type: does not use Lack of Transportation: No Lack of Food: Never True Current Housing: I Have Housing Concerned About Future Housing: No Difficulty Paying Gas/Electric Bills: No Difficulty Paying for Meds: No Currently Unemployed: No Education: High School Diploma/GED Difficulty w/ Childcare or Family Care: No Living arrangements: assisted living Occupation/Education: retired Gender identity (if verbalized by the patient): Female Sexual Orientation (if Verbalized by the Patient): Straight or Heterosexual <Dayan Mccray MD - Last Filed: 03/20/24 22:06> Exam Narrative: GENERAL APPEARANCE: WELL-DEVELOPED, WELL-NOURISHED DOES NOT LOOK IN PAIN OR DISTRESS SKIN: NORMAL COLOR HEAD: NORMOCEPHALIC, NONTRAUMATIC EYES: CLEAR CONJUNCTIVA NECK: SUPPLE, NONTENDER CHEST AND RESPIRATORY: AIRWAY PATENT, NO RESPIRATORY DISTRESS, NO ACCESSORY MUSCLE USE HEART: REGULAR RATE/RHYTHM ABDOMEN: SOFT, NONTENDER, NO ORGANOMEGALY, QUIET BOWEL SOUNDS VASCULAR: NORMAL PERIPHERAL PULSES, NORMAL CAPILLARY REFILL. MUSCULOSKELETAL: NORMAL RANGE OF MOTION, DIFFUSE TENDERNESS OF THORACIC AND LUMBAR SPINE, NO BRUISES, NO SWELLING OR RASH NEUROLOGIC: ALERT AND ORIENTED TO HER NAME, PATIENT ABLE TO ANSWER QUESTION BUT AT SLOW RATE. <Dayan Mccray MD - Last Filed: 03/20/24 22:06> Course Course Emergency Course: Patient and family updated on workup and agree with plan of care <Virgen Orta PA-C - Last Filed: 03/20/24 23:33> Consultations Consultation #1: VIRGEN, OUR PHYSICIAN HOT BRAIDER ACCEPTED PATIENT FOLLOW-UP AT SHIFT CHANGE WAITING FOR IMAGING. <Dayan Mccray MD - Last Filed: 03/20/24 22:06> Date: 03/20/24 <Dayan Mccray MD - Last Filed: 03/20/24 22:06> Time: 22:06 <Dayan Mccray MD - Last Filed: 03/20/24 22:06> Vital Signs Vital signs: Vital Signs Temperature 98.2 F 03/20/24 20:38 Pulse Rate 70 03/20/24 20:38 Respiratory Rate 19 03/20/24 20:38 Blood Pressure 122/76 03/20/24 20:38 Pulse Oximetry 100 03/20/24 20:38 Oxygen Delivery Room Air 03/20/24 20:38 Temperature 98.2 F 03/20/24 20:47 Pulse Rate 64 03/20/24 22:18 Respiratory Rate 17 03/20/24 22:18 Blood Pressure 116/63 03/20/24 22:18 Pulse Oximetry 99 03/20/24 22:18 Oxygen Delivery Room Air 03/20/24 20:38 <Dayan Mccray MD - Last Filed: 03/20/24 22:06> Vital Signs Temperature 98.2 F 03/20/24 20:38 Pulse Rate 70 03/20/24 20:38 Respiratory Rate 19 03/20/24 20:38 Blood Pressure 122/76 03/20/24 20:38 Pulse Oximetry 100 03/20/24 20:38 Oxygen Delivery Room Air 03/20/24 20:38 Temperature 98.2 F 03/20/24 20:47 Pulse Rate 64 03/20/24 22:18 Respiratory Rate 17 03/20/24 22:18 Blood Pressure 116/63 03/20/24 22:18 Pulse Oximetry 99 03/20/24 22:18 Oxygen Delivery Room Air 03/20/24 20:38 <Virgen Orta PA-C - Last Filed: 03/20/24 23:33> Procedures Orthopedic Splinting/Casting Injury #1: Splinting/Casting Date: 03/20/24 <Virgen Orta PA-C - Last Filed: 03/20/24 23:33> Splinting/Casting Time: 23:32 <Virgen Orta PA-C - Last Filed: 03/20/24 23:33> Side: right <Virgen Orta PA-C - Last Filed: 03/20/24 23:33> Upper Extremity Injury Location: clavicle <BRANDY Singh Last Filed: 03/20/24 23:33> Upper Extremity Immobilizer: sling/shoulder immobilizer <Virgen Orta PA-C - Last Filed: 03/20/24 23:33> Pre-Procedure Neuro Vascular Exam: normal <BRANDY Singh Last Filed: 03/20/24 23:33> Post-Procedure Neuro Vascular Exam: normal <Virgen Orta PA-C - Last Filed: 03/20/24 23:33> MDM - Extremity Injury (Upper) MDM Narrative Medical decision making narrative: PATIENT HAD A FALL ON FEBRUARY 27, CAME TO OUR EMERGENCY ROOM, CT HEAD AND NECK SHOWED NO ACUTE ABNORMALITIES. PATIENT BEEN HAVING PAIN AT THE RIGHT SHOULDER SINCE, X-RAY WAS DONE TODAY AT THE CARE HOME WHICH SHOWED QUESTIONABLE CLAVICULAR FRACTURE. HISTORY OF DEMENTIA, PATIENT MOVED TO ANSWER QUESTION BUT AND VERY SLOW RATE. SHE DENIES ANY RECENT TRAUMA AFTER FEBRUARY 27. BECAUSE PATIENT HAVE HISTORY OF DEMENTIA, UNABLE TO GET IT CORRECT HISTORY, CT HEAD, CT CERVICAL SPINE, CT THORACIC SPINE AND LUMBAR SPINE ORDERED, CT CT CHEST TO RULE OUT THE POSSIBILITY OF RIB FRACTURE, CLAVICULAR FRACTURE ORDERED. <Dayan Mccray MD - Last Filed: 03/20/24 22:06> PATIENT HAD A FALL ON FEBRUARY 27, CAME TO OUR EMERGENCY ROOM, CT HEAD AND NECK SHOWED NO ACUTE ABNORMALITIES. PATIENT BEEN HAVING PAIN AT THE RIGHT SHOULDER SINCE, X-RAY WAS DONE TODAY AT THE CARE HOME WHICH SHOWED QUESTIONABLE CLAVICULAR FRACTURE. HISTORY OF DEMENTIA, PATIENT MOVED TO ANSWER QUESTION BUT AND VERY SLOW RATE. SHE DENIES ANY RECENT TRAUMA AFTER FEBRUARY 27. BECAUSE PATIENT HAVE HISTORY OF DEMENTIA, UNABLE TO GET IT CORRECT HISTORY, CT HEAD, CT CERVICAL SPINE, CT THORACIC SPINE AND LUMBAR SPINE ORDERED, CT CT CHEST TO RULE OUT THE POSSIBILITY OF RIB FRACTURE, CLAVICULAR FRACTURE ORDERED. Imaging showing clavicle fracture. Discharged back to facility with sling <Virgen Orta PA-C - Last Filed: 03/20/24 23:33> Differential Diagnosis Differential diagnosis: Likely other (FRACTURE VERSUS CONTUSION) <Dayan Mccray MD - Last Filed: 03/20/24 22:06> Imaging Data Radiologist's impression: ITS Impressions Head CT 03/20/24 21:54 IMPRESSION: 1. No fracture or acute intracranial process. 2. Unchanged ventriculoperitoneal shunt which courses from posterior to anterior across the right lateral ventricle with tip in the anterior right frontal periventricular white matter. Ventricles are unchanged. 4. Mild scattered white matter hypoattenuation consistent with chronic small vessel ischemic disease. Chest CT 03/20/24 22:04 IMPRESSION: 1. 1 cm displacement of an extra articular fracture of the lateral right cl avicle. 2. Mild emphysema and mild dependent atelectasis. No acute cardiopulmonary disease. 3. Indeterminate 7 x 5 mm left lower lobe pulmonary nodule. Recommend 6 month follow-up low-dose noncontrast chest CT. Cervical Spine CT 03/20/24 22:22 IMPRESSION: 1. Cervical dextrocurvature scoliosis with severe spondylosis. No acute osseous abnormality. Thoracic/Lumbar Spine CT 03/20/24 22:28 IMPRESSION: 1. 35 degrees upper thoracic levoscoliosis with moderate spondylosis. No acute osseous abnormality. 2. 15 degrees lumbar levoscoliosis with severe spondylosis. No acute osseous abnormality. <Virgen Orta PA-C - Last Filed: 03/20/24 23:33> Critical Care Time Critical Care Time Critical Care Time: No <Virgen rOta PA-C - Last Filed: 03/20/24 23:33> Discharge Plan Discharge Clinical Impression: Pulmonary nodule Closed fracture of right clavicle Qualifiers: Encounter type: initial encounter Clavicle location: lateral end Fracture alignment: displaced Qualified Code(s): S42.031A - Displaced fracture of lateral end of right clavicle, initial encounter for closed fracture <Dayan Mccray MD - Last Filed: 03/20/24 22:06> Patient Disposition: NH Assisted/Asst Living <Dayan Mccray MD - Last Filed: 03/20/24 22:06> Condition: Stable <Dayan Mccray MD - Last Filed: 03/20/24 22:06> Instructions: Clavicle Fracture (ED), Pulmonary Nodules (ED) <Dayan Mccray MD - Last Filed: 03/20/24 22:06> Additional Instructions: Return to the emergency department if you experience fever, chest pain, shortness of breath, abdominal pain with nausea and vomiting, weakness, numbness, or any other symptoms that are concerning to you. Wear sling. Ice. Elevate. Over the counter pain medication as needed. Prescribed pain medication as needed. Lidocaine patch to the area of pain as needed Follow up with orthopedics <Dayan Mccray MD - Last Filed: 03/20/24 22:06> Prescriptions: New hydrocodone-acetaminophen 5-325 mg tablet 1 tablet PO Q8H PRN (Reason: pain) Qty: 14 0RF lidocaine 5 % adhesive patch,medicated 1 patch topical DAILY PRN (Reason: pain) Qty: 15 0RF Rx Instructions: leave on most painful area for up to 12 hrs No Action acetaminophen [Tylenol] 325 mg capsule 325 mg PO Q6H PRN azelastine 137 mcg (0.1 %) aerosol,spray 1 spray intranasal Q12H Rx Instructions: administer into each nostril fluticasone propionate [Allergy Relief (fluticasone)] 50 mcg/actuation spray,suspension 1 spray intranasal BID Rx Instructions: administer into each nostril levothyroxine 25 mcg capsule 25 mcg PO DAILY [facility] 8 mg iron-400 mcg-300 mcg tablet 1 tablet PO DAILY cefdinir 300 mg capsule 300 mg PO Q12H Qty: 14 0RF buspirone 5 mg tablet 5 mg PO BID Qty: 60 3RF <Dayan Mccray MD - Last Filed: 03/20/24 22:06> Follow-up/Referrals: López Garrido MD [Physician] - Thompson Proctor MD [Primary Care Provider] - <Dayan Mccray MD - Last Filed: 03/20/24 22:06> Stand Alone Forms: [facility] Discharge <Dayan Mccray MD - Last Filed: 03/20/24 22:06>
[2024-03-20 22:18] VITALS: BP 116/63; PULSE 64; RESP 17; TEMP 36.9; O2SAT 99
[2024-03-21 00:16] VITALS: BP 122/72; PULSE 66; RESP 17; O2SAT 99
[2024-03-21 02:37] VITALS: BP 114/70; PULSE 70; RESP 20; O2SAT 99
[2024-03-21 04:00] VITALS: BP 112/68; PULSE 69; RESP 18; O2SAT 100
== END 2024-03-21 06:45 ==
PROVIDERS: Emergency Provider Emergency Medicine; PCP Family Medicine
DX: S42.031A Displaced fracture of lateral end of right clavicle, initial encounter for closed fracture (principal); R91.1 Solitary pulmonary nodule; F03.90 Unspecified dementia, unspecified severity, without behavioral disturbance, psychotic disturbance, mood disturbance, and anxiety; E78.2 Mixed hyperlipidemia; E06.3 Autoimmune thyroiditis; E55.9 Vitamin D deficiency, unspecified; G47.33 Obstructive sleep apnea (adult) (pediatric); M17.11 Unilateral primary osteoarthritis, right knee; Z98.2 Presence of cerebrospinal fluid drainage device; Z79.899 Other long term (current) drug therapy; J43.9 Emphysema, unspecified; M47.812 Spondylosis without myelopathy or radiculopathy, cervical region; M47.814 Spondylosis without myelopathy or radiculopathy, thoracic region; M47.816 Spondylosis without myelopathy or radiculopathy, lumbar region; W19.XXXA Unspecified fall, initial encounter
CPT/HCPCS: 70450; 71250; 72125; 72128; 72131; 99284; A4565